=== PATIENT | female | born 1950 | race Caucasian/White ===

== ENCOUNTER 2018-02-23 12:08 | Observation (INO) | payer BC ==
[~2018-02-23] VITALS: Ht 167.6 cm; Wt 88.4 kg
[2018-02-23] MEDS ORDERED: Lotrel 10-40 M1 EACH PO (12:56)
[2018-02-23] MEDS ORDERED: ESCI5 PO (12:57)
[2018-02-23] MEDS ORDERED: METF500 PO (12:57)
[2018-02-23] MEDS ORDERED: TOCO1000 PO (12:58)
[2018-02-23] MEDS ORDERED: Hair, Skin & N1 EACH PO (12:58)
[2018-02-23] MEDS ORDERED: Vitamin D400 UNI1 PO (12:58)
[2018-02-23] MEDS ORDERED: Co Q-1010 MG PO (12:59)
[2018-02-23 14:33] LABS: BASOPHILS ABSOLUTE AUTO 0.03 K/mm3 (0.00-0.23); BASOPHILS PERCENT AUTO 0 % (0-2); EOSINOPHILS ABSOLUTE AUTO 0.05 K/mm3 (0.00-0.68); EOSINOPHILS PERCENT AUTO 1 % (0-6); Hematocrit 45.1 % (33.0-51.0); Hemoglobin 15.5 g/dL (11.5-16.0); IMMATURE GRAN ABSOLUTE AUTO 0.02 K/mm3 (0.00-0.10); IMMATURE GRAN PERCENT AUTO 0 % (0-1); LYMPHOCYTES ABSOLUTE AUTO 1.97 K/mm3 (0.84-5.20); LYMPHOCYTES PERCENT AUTO 24 % (21-46); MONOCYTES ABSOLUTE AUTO 0.72 K/mm3 (0.16-1.47); MONOCYTES PERCENT AUTO 9 % (4-13); Mean Corpuscular HGB 31.1 pg (26.0-34.0); Mean Corpuscular HGB Conc 34.4 g/dL (31.5-36.5); Mean Corpuscular Volume 91 fL (80-100); NEUTROPHILS ABSOLUTE AUTO 5.53 K/mm3 (1.96-9.15); NEUTROPHILS PERCENT AUTO 66 % (41-73); Platelet Count 343 K/mm3 (150-400); RDW Coefficient Variation 13.2 % (11.7-14.2); RDW Standard Deviation 43.3 fL (35.1-46.3); Red Blood Cell Count 4.98 M/mm3 (3.80-5.20); White Blood Cell Count 8.32 K/mm3 (4.00-11.30)
[2018-02-23 14:48] LABS: Alanine Aminotransfer (ALT/SGP 38 U/L (12-78); Albumin, Blood 4.1 g/dL (3.4-5.0); Albumin/Globulin Ratio 1.1 (0.8-1.8); Alk Phos 63 U/L (50-136); Anion Gap 5 mmol/L (6-16); Aspartate Aminotrans (AST/SGOT 24 U/L (12-37); Bilirubin, Total 0.6 mg/dL (0.1-1.0); Blood Urea Nitrogen 11 mg/dL (8-24); Bun/Creatinine Ratio 19.7 (12.0-20.0); CO2, Blood 28 mmol/L (21-32); Calcium, Blood 9.4 mg/dL (8.5-10.1); Chloride, Blood 103 mmol/L (98-108); Creatinine, Blood 0.56 mg/dL (0.40-1.00); Globulin, Blood 3.6 g/dL (2.2-4.0); Glomerular Filtration Rate >60 (60-); Glucose, Blood 135 mg/dL (70-99); Potassium, Blood 3.9 mmol/L (3.5-5.5); Sodium, Blood 136 mmol/L (136-145); Total Protein, Blood 7.7 g/dL (6.4-8.2)
[2018-02-24 05:05] LABS: BASOPHILS ABSOLUTE AUTO 0.03 K/mm3 (0.00-0.23); BASOPHILS PERCENT AUTO 1 % (0-2); EOSINOPHILS ABSOLUTE AUTO 0.09 K/mm3 (0.00-0.68); EOSINOPHILS PERCENT AUTO 2 % (0-6); Hematocrit 41.9 % (33.0-51.0); Hemoglobin 14.3 g/dL (11.5-16.0); IMMATURE GRAN ABSOLUTE AUTO 0.01 K/mm3 (0.00-0.10); IMMATURE GRAN PERCENT AUTO 0 % (0-1); LYMPHOCYTES ABSOLUTE AUTO 2.09 K/mm3 (0.84-5.20); LYMPHOCYTES PERCENT AUTO 40 % (21-46); MONOCYTES ABSOLUTE AUTO 0.45 K/mm3 (0.16-1.47); MONOCYTES PERCENT AUTO 9 % (4-13); Mean Corpuscular HGB 30.3 pg (26.0-34.0); Mean Corpuscular HGB Conc 34.1 g/dL (31.5-36.5); Mean Corpuscular Volume 89 fL (80-100); NEUTROPHILS ABSOLUTE AUTO 2.54 K/mm3 (1.96-9.15); NEUTROPHILS PERCENT AUTO 49 % (41-73); Platelet Count 291 K/mm3 (150-400); RDW Coefficient Variation 13.2 % (11.7-14.2); RDW Standard Deviation 42.5 fL (35.1-46.3); Red Blood Cell Count 4.72 M/mm3 (3.80-5.20); White Blood Cell Count 5.21 K/mm3 (4.00-11.30)
[2018-02-24 05:44] LABS: Alanine Aminotransfer (ALT/SGP 31 U/L (12-78); Albumin, Blood 3.3 g/dL (3.4-5.0); Alk Phos 52 U/L (50-136); Anion Gap 7 mmol/L (6-16); Aspartate Aminotrans (AST/SGOT 16 U/L (12-37); Bilirubin, Total 0.7 mg/dL (0.1-1.0); Blood Urea Nitrogen 7 mg/dL (8-24); Bun/Creatinine Ratio 13.8 (12.0-20.0); CO2, Blood 27 mmol/L (21-32); Calcium, Blood 8.6 mg/dL (8.5-10.1); Chloride, Blood 105 mmol/L (98-108); Creatinine, Blood 0.51 mg/dL (0.40-1.00); Globulin, Blood 3.2 g/dL (2.2-4.0); Glomerular Filtration Rate >60 (60-); Glucose, Blood 143 mg/dL (70-99); Potassium, Blood 3.9 mmol/L (3.5-5.5); Sodium, Blood 139 mmol/L (136-145); Total Protein, Blood 6.5 g/dL (6.4-8.2)
== END 2018-02-24 13:00 | disposition home or self-care (01) ==
LOC: ER 12:08 → MEDS 12:09 → ER 12:09 → MEDS 16:20 → ER 18:45 → ENPENDDIS 02-24 11:00 → MEDS 02-24 13:00
PROVIDERS: Internal Medicine
DX: T46.1X1A Poisoning by calcium-channel blockers, accidental (unintentional), initial encounter (principal); I10 Essential (primary) hypertension; E11.9 Type 2 diabetes mellitus without complications; F32.9 Major depressive disorder, single episode, unspecified; D68.51 Activated protein C resistance; Z79.82 Long term (current) use of aspirin; Z79.899 Other long term (current) drug therapy; Z88.0 Allergy status to penicillin
CPT/HCPCS: 36415; 80053; 82947; 85025; 93005; 93010; 96372; 99285; G0378; J1650

== ENCOUNTER 2020-09-14 07:34 | Day surgery (SDC) | payer BC ==
[~2020-09-14] VITALS: Ht 162.6 cm; Wt 81.0 kg
[~2020-09-14 07:34] MED LIST: ACET325 PO; CO Q10100 MG PO; Co Q-1010 MG PO; ESCI5 PO; Hair, Skin & N1 EACH PO; LOTREL 10-40 M1 EACH PO; LUTEIN40 MG PO; METF500 PO; METO25 PO; METO25ER PO; TOCO1000 PO; Vitamin D2000 UNIT PO; XARELTO15 MG PO; XARELTO20 MG PO
--- NOTE | 2020-09-14 12:58 | NUR ---
DISHARGE PT REMAINED A&OX3 AND DENIED ANY PAIN. RIGHT IJ SITE REMAINED CDI-NO HEMATOMA NOTED-TEGADERM IN PLACE. IV DC'S WITH CANULA IN TACT. PT ABLE TO ABULATE TO RESTROOM AND DRESS SELF INDEPENDANTLY. DISCHARGE PAPERWORK GONE OVER WITH PT. PT VERBALLY STATED THE UNDERSTANDING AND DENIED ANY QUESTIONS ABOUT THE DISCHARGE EDUCATION. PT WHEELED OUT BY THIS NURSE.
== END 2020-09-14 12:00 | disposition home or self-care (01) ==
LOC: MHTC 07:34
DX: Z45.89 Encounter for adjustment and management of other implanted devices (principal); D68.2 Hereditary deficiency of other clotting factors; I10 Essential (primary) hypertension; E11.9 Type 2 diabetes mellitus without complications; F32.9 Major depressive disorder, single episode, unspecified; E78.5 Hyperlipidemia, unspecified; Z86.718 Personal history of other venous thrombosis and embolism; Z86.711 Personal history of pulmonary embolism; Z88.0 Allergy status to penicillin; Z88.8 Allergy status to other drugs, medicaments and biological substances; Z79.84 Long term (current) use of oral hypoglycemic drugs; Z79.01 Long term (current) use of anticoagulants; Z79.899 Other long term (current) drug therapy
CPT/HCPCS: 76937; 99152; 99153; C1773; C1894; J1644; J2250; J3010; J7030; J7040; Q9967

== ENCOUNTER → 2022-07-23 | Outpatient (CLI) | payer BC ==
[2022-07-27 04:09] LABS: HSV-1 DNA Positive (Negative); HSV-2 DNA Negative (Negative)
== END ==
LOC: LAB 15:37 → LAB SHORT 15:37
PROVIDERS: Registered Nurse Community Health
DX: N90.9 Noninflammatory disorder of vulva and perineum, unspecified (principal)
CPT/HCPCS: 87529

== ENCOUNTER 2025-05-05 08:01 | Day surgery (SDC) | payer BC ==
[~2025-05-05] VITALS: Ht 160 cm; Wt 78.2 kg
[~2025-05-05 08:01] MED LIST changes: +Balanced Salt Epinephrine Irrigation Solution 500 mL IR SCH; +Moxifloxacin HCL 0.5 MG/0.1 ML 0.4MLSYR RIGHTEYE SCH; +Ondansetron 4 MG SoluTab MM PRN; +PHENYLEPHRINE\\TROPICAMIDE\\TETRACAINE OPHTHALMIC DILATING SOLN RIGHTEYE PRN; +Povidone-Iodine 450 DROP/30 ML Solution ONE; +Povidone-Iodine 450 DROP/30 ML Solution RIGHTEYE SCH; +Tetracaine HCl/Pf 0.5% Opth Soln 4 ml ONE; +Triamcinolone Inj Susp 40 MG / ML 1ML Vial INJ SCH; +Triamcinolone Inj Susp 40 MG / ML 1ML Vial ONE
--- NOTE | 2025-05-05 08:49 | NUR ---
05/05/25 0849 Monica Ambrocio UPON ARRIVAL PT RATES ANXIETY 01/03. VALIUM [address]'S ORDERS. O2 SATS ARE 98% ON ROOM AIR. CALL LIGHT IN REACH. PT TOLERATED TETRACAINE EYE DROP AND PLEDGET PLACEMENT WELL.
--- NOTE | 2025-05-05 09:14 | NUR ---
05/05/25 0914 Safia Adams 0912 BP 113/65, HR 78, O2 AT 95%, RESP 16
[2025-05-05 09:33] VITALS: BP 115/62
== END 2025-05-05 10:24 | disposition home or self-care (01) ==
LOC: ORSCSDS 08:01
PROVIDERS: Ophthalmology
PROC: 08RJ3JZ Replacement of Right Lens with Synthetic Substitute, Percutaneous Approach (ICD-10-PCS; principal; 2025-05-05 09:30)
DX: E11.36 Type 2 diabetes mellitus with diabetic cataract (principal); H25.813 Combined forms of age-related cataract, bilateral; I10 Essential (primary) hypertension; Z79.01 Long term (current) use of anticoagulants; Z79.84 Long term (current) use of oral hypoglycemic drugs; Z79.899 Other long term (current) drug therapy
CPT/HCPCS: A9270; J3301; V2632

== ENCOUNTER 2025-05-12 07:58 | Day surgery (SDC) | payer BC ==
[~2025-05-12 07:58] MED LIST changes: +Moxifloxacin HCL 0.5 MG/0.1 ML 0.4MLSYR LEFTEYE SCH; -Moxifloxacin HCL 0.5 MG/0.1 ML 0.4MLSYR RIGHTEYE SCH; +PHENYLEPHRINE\\TROPICAMIDE\\TETRACAINE OPHTHALMIC DILATING SOLN LEFTEYE PRN; -PHENYLEPHRINE\\TROPICAMIDE\\TETRACAINE OPHTHALMIC DILATING SOLN RIGHTEYE PRN; +Povidone-Iodine 450 DROP/30 ML Solution LEFTEYE SCH; -Povidone-Iodine 450 DROP/30 ML Solution RIGHTEYE SCH
[2025-05-12] MEDS ORDERED: PRESERVISION A1 EAC5 PO (08:54)
[2025-05-12] MEDS ORDERED: Tetracaine HCl 0.5% Opth Soln 15 ml LEFTEYE ONE (09:23)
--- NOTE | 2025-05-12 09:31 | NUR ---
05/12/25 0931 Tesha Saenz N 131/72 97% 10L BLOW BY O2 71 16
[2025-05-12 09:51] VITALS: BP 131/72
--- NOTE | 2025-05-12 10:08 | NUR ---
05/12/25 1008 NavaSteve dawn PT DENIES PAIN AND NAUSEA AT THIS TIME. PT AGREEABLE TO D/C HOME.
== END 2025-05-12 10:08 | disposition home or self-care (01) ==
LOC: ORSCSDS 07:58
PROVIDERS: Ophthalmology
PROC: 08RK3JZ Replacement of Left Lens with Synthetic Substitute, Percutaneous Approach (ICD-10-PCS; principal; 2025-05-12 09:30)
DX: E11.36 Type 2 diabetes mellitus with diabetic cataract (principal); H25.812 Combined forms of age-related cataract, left eye; H52.202 Unspecified astigmatism, left eye; Z96.1 Presence of intraocular lens; Z79.01 Long term (current) use of anticoagulants; Z79.84 Long term (current) use of oral hypoglycemic drugs; Z79.899 Other long term (current) drug therapy
CPT/HCPCS: A9270; J3301; V2632